=== PATIENT | male | born 2000 | race Hispanic/Latino ===

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

== ENCOUNTER 2021-11-26 06:50 | Emergency (ER) | payer OTHER, SELFPAY ==
[2021-11-26 08:53] LABS: #Basophils 0.1 thou/uL (0.0-0.2); #Eosinphils 0.1 thou/uL (0.0-0.7); #Lymphocytes 1.9 thou/uL (1.20-3.40); #Monocytes 0.7 thou/uL (0.11-0.59); #Neutrophils 7.6 thou/uL (1.40-6.50); %Basophils 0.5 % (0.0-1.0); %Eosinophils 1.1 % (0.0-10.0); %Lymphocytes 18.2 % (21.0-51.0); %Monocytes 6.8 % (0.0-10.0); %Neutrophils 73.4 % (42.0-75.0); Hemoglobin 16.8 g/dL (14.0-18.0); Mean Corpuscular HGB CONC 33.6 g/dL (32.0-36.0); Mean Corpuscular Hemoglobin 29.7 pg (27.0-31.0); Mean Corpuscular Volume 88.4 fL (78.0-98.0); Platelet Count 339 thou/uL (130-400); RBC Distribution Width 12.7 % (11.5-14.5); Red Blood Cell (RBC) Count 5.66 mill/uL (4.70-6.10); White Blood Cell (WBC) Count 10.3 thou/uL (4.8-10.8)
[2021-11-26 09:10] LABS: ALT (SGPT) 46 U/L (8-55); AST (SGOT) 48 U/L (5-34); Albumin 4.7 g/dL (3.5-5.0); Alkaline Phosphatase 76 U/L (40-110); Anion Gap 20 mmol/L (10-20); BUN (Urea Nitrogen) 13 mg/dL (8.9-20.6); Bilirubin, Total 0.8 mg/dL (0.2-1.2); Calc. Creatinine Clearance 0 mL/min (70-130); Calcium 9.8 mg/dL (7.8-10.44); Carbon Dioxide 20 mmol/L (22-29); Chloride 106 mmol/L (98-107); Estimated GFR 127; Globulin 3.1 g/dL (2.4-3.5); Glucose 95 mg/dL (70-105); Potassium 3.7 mmol/L (3.5-5.1); Protein, Total 7.8 g/dL (6.0-8.3); Sodium 142 mmol/L (136-145)
[2021-11-26] MEDS ORDERED: Ibuprofen 800 MG TAB ONE (10:13)
[2021-11-26] MEDS ORDERED: Iopamidol-370 76% 500 ML 1 ML ONE (12:53)
== END 2021-11-26 10:15 | disposition home or self-care (01) ==
LOC: ERS 06:50 → EEVIPCON 06:50 → ERS 10:15
DX: S29.011A Strain of muscle and tendon of front wall of thorax, initial encounter (principal); F17.210 Nicotine dependence, cigarettes, uncomplicated; V89.2XXA Person injured in unspecified motor-vehicle accident, traffic, initial encounter
CPT/HCPCS: 36415; 70450; 71260; 72125; 74177; 80053; 84484; 85025; 93005; Q9967

== ENCOUNTER 2022-02-13 12:05 | Emergency (ER) | payer SELFPAY ==
[2022-02-13] MEDS ORDERED: cefTRIAXone\\ROCEPHIN 500 MG VIAL ONE (13:44)
[2022-02-13] MEDS ORDERED: Lidocaine 1% MPF 2 ML VIAL ONE (13:46)
[2022-02-13 14:00] LABS: Glucose, Urine (Dipstick) Normal (Negative); Protein, Urine (Dipstick) 10 mg/dL (Neg-Trace)
[2022-02-13 14:12] LABS: Clarity Cloudy (Clear)
[2022-02-13 14:13] LABS: Ketone, Urine Negative (Negative); Leukocyte 500 Leu/uL (Negative); Nitrite Negative (Negative); Specific Gravity, Urine 1.023 (1.002-1.036); pH, Urine 6.5 (5.0-9.0)
[2022-02-13 14:14] LABS: Bilirubin Negative (Negative); Blood, Urine 1+ (Negative); Urobilinogen Normal mg/dL (Less than 2)
[2022-02-13 14:15] LABS: Bacteria/HPF 1+ HPF (None Seen); Squamous Epithelial None Seen HPF (0-3); WBC/HPF Greater than 50 HPF (0-3)
[2022-02-14 12:21] LABS: Chlam.trachomatis by PCR,Urine DETECTED (NotDetected)
== END 2022-02-13 14:23 | disposition home or self-care (01) ==
LOC: ERS 12:05
DX: A64 Unspecified sexually transmitted disease (principal)
CPT/HCPCS: 81003; 81015; 87491; 87591; 96372; 99283; J0696

== ENCOUNTER 2024-02-19 07:41 | Emergency (ER) | payer SELFPAY ==
[2024-02-19] MEDS ORDERED: Ketorolac Tromethamine 30 MG (1 mL) VIAL ONE (08:16)
[2024-02-19] MEDS ORDERED: Diazepam 10 MG/2 ML SYRINGE ONE (08:18)
== END 2024-02-19 09:38 | disposition home or self-care (01) ==
LOC: ERS 07:41
DX: M54.50 Low back pain, unspecified (principal); X50.1XXA Overexertion from prolonged static or awkward postures, initial encounter; Y93.67 Activity, basketball
CPT/HCPCS: 96372; 99282; J1885; J3360

== ENCOUNTER 2024-12-19 08:11 | Emergency (ER) | payer SELFPAY ==
[2024-12-19] MEDS ORDERED: Ondansetron PF 4 MG/2 ML Vial ONE (08:29)
[2024-12-19 08:38] LABS: #Basophils 0.03 10x3/uL (0.0-0.2); #Eosinophils Less than 0.03 10x3/uL (0.0-0.7); #Monocytes 0.36 10x3/uL (0.11-0.59); #Neutrophils 10.24 10x3/uL (1.40-6.50); %Basophils 0.3 % (0.0-1.0); %Eosinophils 0.2 % (0.0-10.0); %Lymphocytes 6.8 % (21.0-51.0); %Monocytes 3.1 % (0.0-10.0); %Neutrophils 89.0 % (42.0-75.0); Hematocrit 49.4 % (42.0-52.0); Hemoglobin 16.4 g/dL (14.0-18.0); Mean Corpuscular Hemoglobin 27.1 pg (27.0-31.0); Mean Corpuscular Volume 81.7 fL (78.0-98.0); Platelet Count 348 10x3/uL (130-400); Red Blood Cell (RBC) Count 6.05 mill/uL (4.70-6.10); White Blood Cell (WBC) Count 11.50 10x3/uL (4.8-10.8)
[2024-12-19 09:03] LABS: ALT (SGPT) 76 U/L (Less than 45); AST (SGOT) 59 U/L (11-34); Albumin 4.7 g/dL (3.1-4.5); Alkaline Phosphatase 85 U/L (40-110); Anion Gap 14 mmol/L (10-20); BUN (Urea Nitrogen) 12 mg/dL (8.9-20.6); Bilirubin, Total 0.6 mg/dL (0.3-1.2); Calc. Creatinine Clearance 0 mL/min (70-130); Calcium 9.5 mg/dL (7.8-10.44); Carbon Dioxide 25 mmol/L (22-29); Chloride 106 mmol/L (98-107); Globulin 3.9 g/dL (2.4-3.5); Glucose 110 mg/dL (70-105); Lipase 9 U/L (8-78); Potassium 4.3 mmol/L (3.5-5.1); Sodium 141 mmol/L (136-145)
[2024-12-19 09:18] LABS: CK (CPK) 283 U/L (30-200)
[2024-12-19 11:03] LABS: Bacteria/HPF None Seen HPF (None Seen); CAUTI Indications for Culture Pelvic or flank pain; Glucose, Urine (Dipstick) Normal (Negative); Leukocyte Negative Leu/uL (Negative); Protein, Urine (Dipstick) 10 mg/dL (Neg-Trace); RBC/HPF 0-3 HPF (0-3); Specific Gravity, Urine 1.028 (1.002-1.036); WBC/HPF 0-3 HPF (0-3)
[2024-12-19 11:12] LABS: Cocaine Metabolite Screen Negative (Negative); THC/Cannabinoid Screen Negative (Negative); Tricyclic Screen Negative (Negative)
[2024-12-19 11:15] LABS: Urine Culture Reflex No No
== END 2024-12-19 10:40 | disposition home or self-care (01) ==
LOC: ERS 08:11
DX: E86.0 Dehydration (principal); R11.2 Nausea with vomiting, unspecified
CPT/HCPCS: 76705; 80053; 80306; 81001; 82550; 83690; 85025; 96361; 96374; J2405